=== PATIENT | female | born 1950 | race Asian ===

== ENCOUNTER 2024-09-23 19:39 | Emergency (ER) | payer OTHER, SELFPAY ==
[2024-09-23 19:40] VITALS: BMI 19.8
[2024-09-23 19:42] VITALS: BP 167/94
[2024-09-23 20:02] LABS: Urine Albumin Negative (Neg - Trace); Urine Bilirubin Negative (Negative); Urine Character Clear (Clear); Urine Color Yellow; Urine Glucose Negative (Negative); Urine Ketone Negative (Negative); Urine Leukocyte Trace (Negative); Urine Nitrite Negative (Negative); Urine Occult Blood 2+ (Negative); Urine Specific Gravity 1.015 (<1.030); Urine Urobilinogen Negative (Neg - 1+)
[2024-09-23 20:05] LABS: % Basophils 0.5 % (0-2); % Eosinophils 1.1 % (0-6); % Immature Granulocytes 0.3 % (0-0.5); % Lymphocytes 36.1 % (20.5-51.1); % Monocytes 9.5 % (1.7-9.3); % Neutrophils 52.5 % (42.2-75.2); Absolute Eosinophils 0.1 10^3/uL (0-0.7); Absolute Lymphocytes 2.3 10^3/uL (1.2-3.4); Absolute Monocytes 0.6 10^3/uL (0.1-0.6); Absolute Neutrophils 3.3 10^3/uL (1.4-6.5); Hematocrit 40.4 % (37.0-47.0); Hemoglobin 13.2 g/dL (12.0-16.0); Mean Corp Hgb Conc. 32.7 g/dL (33.0-37.0); Mean Corpuscular Volume 88.8 fL (81.0-99.0); Nucleated Red Blood Cells % 0 %; Platelet Count 293 10^3/uL (130-400); Red Blood Cell Count 4.55 10^6/uL (4.20-5.40); Red Cell Dist. Width 11.9 % (11.5-14.5); White Blood Cell Count 6.3 10^3/uL (4.8-10.8)
[2024-09-23 20:18] LABS: ALT (SGPT) 19 U/L (0-35); AST (SGOT) 27 U/L (14-36); Albumin 4.4 g/dl (3.5-5.0); Alkaline Phosphatase 90 U/L (38-126); Blood Urea Nitrogen 15 mg/dl (7-17); Calcium 9.5 mg/dl (8.4-10.2); Carbon Dioxide 28 mmol/L (22-30); Chloride 104 mmol/L (98-107); Glucose 118 mg/dl (70-99); Lipase 166 U/L (23-300); Sodium 139 mmol/L (135-145); Total Bilirubin 0.5 mg/dl (0.2-1.3); Total Protein 7.7 g/dl (6.3-8.2); eGFR > 60.00
[2024-09-23 20:30] LABS: Urine Squamous Cell 0-2 /LPF (Few)
[2024-09-23 20:31] LABS: Urine White Cell 0-2 /HPF (0-5)
[2024-09-23] MEDS: OMNIPAQUE 50 ML PO (22:02)
--- NOTE | 2024-09-23 22:23 | ED.GENMED ---
History of Present Illness
General
Chief Complaint: Abdominal Pain
Source: patient and family (Daughter)
Exam Limitations: none
Time Seen by Provider: 09/23/24 21:39
History of Present Illness
History of Present Illness:
This is a 74 year old female that comes in with c/o abd burning. States that she has abd pain that is like a burning that is all over. State that she feels this gurgling in her stomach. Daughter states that this has been on and off in the past but
has become more severe in the past 2 days. States that she has occasional urinary burning. Denies any fever, chills, chest pain, SOB, nausea, vomiting, diarrhea, headache, dizziness.
Past History
Past History
ED Past Medical History: HTN; Negative Asthma, Hypercholesterolemia, NIDDM or WI
ED Past Surgical History: (X 2)
Social History
Tobacco: Non-smoker
Alcohol: None
Personal:
Living: with family
Review of Systems
Review of Systems
All Other Systems: ROS reviewed and negative except as documented in HPI and ROS
Constitutional: Reports no symptoms; Denies fever or chills
EENT: Reports no symptoms
Respiratory: Reports no symptoms; Denies cough or trouble breathing
Cardiac: Reports no symptoms; Denies chest pain
ABD/GI: Reports abdominal pain; Denies nausea, vomiting or diarrhea
: Reports dysuria (occasional); Denies frequency or urgency
Musculoskeletal: Reports no symptoms
Skin: Reports no symptoms
Neurological: Reports no symptoms; Denies dizzy or headache
Psychiatric: Reports no symptoms
Phy Exam
General Physical Exam
General Presentation: no apparent distress
General age: appears stated age
General Skin: warm and dry
General Habitus: elderly
General Mental: alert
General Hydration: appears well hydrated
ENT Exam
ENT Exam: TM's normal, pharynx normal and neck supple
Eye Exam
Eye Exam: EOMI
Cardiovascular Exam
Cardiovascular Exam: regular rate/rhythm, no edema, no murmur and normal peripheral pulses
Pulmonary Exam
Pulmonary Exam: lungs clear, no respiratory distress, no rales, chest non tender, no crackles, no rhonchi, no wheezing and no cough
Gastrointestinal Exam
Gastrointestinal Exam: normal bowel sounds, non tender, soft, no organomegaly, no pulsatile mass, non distended and other ('states that there is burning all over')
Musculoskeletal Exam
Musculoskeletal Exam: full ROM and no edema
Skin Exam
Skin Exam: normal color, warm/dry, no rash and no petechia
Psychiatric Exam
Psychiatric Exam: normal mood/affect
Course
Orders/Labs/Results
Orders:
Orders
09/23/24 19:55
Complete Blood Count/With Diff Urgent
Comprehensive Metabolic Panel Urgent
Lipase Urgent
Urinalysis Reflex To Culture Urgent
Date Specimen was Collected: 09/23/24
Time Specimen was Collected: 19:45
Urine Microscopic Reflex Cult Urgent
09/23/24 21:52
Iohexol [Omnipaque] 50 ml .ROUTE .[facility]
09/23/24 22:01
Iohexol [Omnipaque] See Protocol PO NOW STA
09/23/24 22:21
Iohexol [Omnipaque] See Protocol PO NOW STA
Pantoprazole [Protonix IV] 40 mg IV NOW STA
09/23/24 22:22
0.9% Sodium Chloride 1000 ml [Nss] 1,000 ml IV BOLUS
09/24/24 00:10
CT Abd/pel W Iv And Oral Contr Urgent
Reason For Exam: genarlized abd buring
Abnormal Lab Results
09/23/24
19:55
MCHC 32.7 L g/dL
(33.0-37.0)
Monocytes % 9.5 H %
(1.7-9.3)
Glucose 118 H mg/dl
(70-99)
Ur Occult Blood Reflex 2+ A
(Negative)
Leukocyte Esterase Rfl Trace A
(Negative)
Urine RBC 3-6 A /HPF
(0-2)
09/23/24 19:55
09/23/24 19:55
Hyperglycemia. Urine negative for infection positive for blood, Lipase normal at 166
Vital Signs
Initial and Last Documented VS:
Initial Vital Signs
Temp Pulse Resp BP Pulse Ox
98.0 F 81 19 167/94 100
09/23/24 19:42 09/23/24 19:42 09/23/24 19:42 09/23/24 19:42 09/23/24 19:42
Last Documented Vital Signs
Temp Pulse Resp BP Pulse Ox
97.7 F 77 16 140/85 99
09/23/24 21:41 09/23/24 23:47 09/23/24 23:47 09/24/24 00:07 09/23/24 23:47
MDM/Problems Addressed
Differential Diagnosis Includes:
Gastritis,
MDM/Problems Addressed:
This is a 74 year old female that comes in with c/o abd burning. Daughter states that this has been on and off but in the past 2 days the pain has gotten worse.
Will get labs, CT abd/pelvis, IV fluids and Protonix.
Back into see patient and daughter. Explained that her blood work is normal along with the CT scan. Will place patient on Protonix and Carafate. Patient to follow up with the family doctor. Return with any concerns.
Chronic conditions affecting care:
NA
Acute Exacerbation and/or Progression of Chronic Illness:
NA
*Radiology
Radiology exam reviewed: radiology read reviewed (ct [facility]- [facility] ACUTE INTRA-ABDOMINAL PATHOLOGY. No bowel obstruction or inflammation. Appendix is normal. No hydronephrosis or nephrolithiasis. No free air or free fluid. Moderate bladder wall
thickening in an underdistended bladder, which may be due to under distention or cystitis. )
*Pulse Oximetry
Patient hypoxic: no
*EKG
Interpreted by ED Provider?: NA
Rate: EKG- N/A
*Glue Maker Interpretation
Rate: Glue Maker- N/A
*Critical Care Note
Total Time (30-74mins, 75-104mins- exclusive of procedures): Not Applicable
ED Attending Note
-
Portions of this chart may have been created with voice recognition software.� Occasional wrong word or��sound alike� substitutions may have occurred due to the inherent limitations of voice recognition software.
Discharge Plan
Departure
Patient Disposition: Home (Routine Discharge)
Date of Disposition: 09/24/24
Time of Disposition: 01:08
Patient with high blood pressure during this ER visit?: Yes
Condition: Good
Covid-19: Not Applicable
Discharge Problem:
Gastritis
Instructions: Gastritis (DC), BLOOD PRESSURE
Prescriptions:
New
pantoprazole [Protonix] 40 mg tablet,delayed release (DR/EC)
40 mg PO DAILY Qty: 30 0RF
sucralfate [Carafate] 1 gram tablet
1 g PO ACHS Qty: 40 0RF
Rx Instructions:
Dissolve in 2tsp water and drink 30min-1hour before meals and HS
Referrals:
Kierra Ramirez MD [Family Provider] - Call in 1-3 days for appt
Activity Restrictions/Additional Instructions:
As discussed, your blood work is normal and your urine is negative for infection. There is some blood in the urine. Please increase your water intake to 8-8oz glasses daily. Your Ct of the abd/pelvis is negative for any acute process. This may be
gastritis that is not seen on the CT scan. You have had 2 prescriptions sent to your Pharmacy. Please take the Protonix daily. The Carafate is 30min-1hour before meals and again at bedtime. Please dissolve this pill in 2 tsp of water and drink.
Follow up with the family doctor for recheck. IF YOU HAVE ANY OTHER CONCERNS PLEASE RETURN TO THE EMERGENCY ROOM.
Interventions
Interventions:
*Risk Screen - Suicide Last Done: 09/23/24 19:42
*General Assessment Last Done: 09/23/24 21:41
*Neglect/Abuse Screening Last Done: 09/23/24 19:42
*ED COVID-19 Vaccine History Last Done: 09/23/24 21:41
MZ-Suadhx-Cftcskgpap Assessment Last Done: 09/23/24 21:41
Discharge Date and Time
Print Language: [place]
[2024-09-23] MEDS: NSS 1000 IV (22:47)
[2024-09-23] MEDS: PROTONIX IV 40 MG IV (22:47)
[2024-09-23 23:47] VITALS: BP 163/82
[2024-09-24 00:07] VITALS: BP 140/85
[2024-09-24] MEDS: CARAFATE SUSPENSION 1 GM PO (01:26)
== END 2024-09-24 01:35 | disposition home or self-care (01) ==
LOC: EMR 19:39
PROVIDERS: Emergency Medicine; EMERGENCY PHYSICIAN Emergency Medicine; FAMILY PHYSICIAN Internal Medicine
DX: K29.70 Gastritis, unspecified, without bleeding (principal); I10 Essential (primary) hypertension
CPT/HCPCS: 96374; 96361; 99284; 74177; 80053; 81003; 81015; 83690; 85025; Q9967